=== PATIENT | male | born 1950 | race Caucasian/White ===

== ENCOUNTER 2021-02-25 21:50 | Inpatient (IN) | payer MEDICARE ==
[~2021-02-25] VITALS: Ht 167.6 cm; Wt 48.6 kg
--- NOTE | 2021-02-25 22:01 | NUR ---
bib ems from [facility]. pt brought into [facility] for n/v/d for 6 months but getting worse today with weakness. pt states hard for him to use the restroom at home. given some saline in [place]. pt placed on all monitors, erp evaled pt, pt laughing and joking with this rn at this time, no other needs at this time, safety measures in place
[2021-02-25] MEDS ORDERED: FURO-93 PO (22:12)
[2021-02-25] MEDS ORDERED: ASPI-1026 PO (22:12)
[2021-02-25] MEDS ORDERED: FOLI1TAB32 PO (22:12)
[2021-02-25] MEDS ORDERED: FAMO20TA7 PO (22:12)
[2021-02-25] MEDS ORDERED: CLOP75TA52 PO (22:12)
[2021-02-25] MEDS ORDERED: LISI-170 PO (22:12)
[2021-02-25] MEDS ORDERED: ATOR20TA86 PO (22:12)
[2021-02-25] MEDS ORDERED: BISO5TAB8 PO (22:12)
[2021-02-25] MEDS ORDERED: POTA10CA PO (22:12)
[2021-02-25] MEDS ORDERED: methylPREDNISolone SOD SUCC 125 MG/2 ML ONE (22:16)
[2021-02-25] MEDS ORDERED: SODIUM CHLORIDE FLUSH 10ML SYR IVF ONE (22:30)
[2021-02-25] MEDS ORDERED: methylPREDNISolone SOD SUCC 125 MG/2 ML IV ONE (22:30)
[2021-02-25 22:42] LABS: BASOPHILS % (AUTO) 1 % (0-1); EOSINOPHILS % (AUTO) 2 % (1-7); LYMPHOCYTES % (AUTO) 17 % (22-44); MEAN CORPUSCULAR HEMOGLOBIN 35.4 pg (27.5-34.5); MEAN CORPUSCULAR HGB CONC 33.4 g/dL (33.2-36.2); MEAN PLATELET VOLUME 7.7 fL (7.4-10.4); MONOCYTES % (AUTO) 6 % (2-9); NEUTROPHILS % (AUTO) 75 % (42-75); PLATELET COUNT 216 x10^3/uL (130-400); RED BLOOD COUNT 2.99 x10^6/uL (4.38-5.82); RED CELL DISTRIBUTION WIDTH 14.1 % (9.4-14.8)
[2021-02-25 22:45] LABS: ALANINE AMINOTRANSFERASE 14 U/L (12-78); ALBUMIN 3.1 g/dL (3.4-5.0); ANION GAP 6 mmol/L (5-15); CALCIUM 7.9 mg/dL (8.5-10.1); CHLORIDE 106 mmol/L (98-107)
[2021-02-25 22:56] LABS: ALKALINE PHOSPHATASE 103 U/L (45-117); BILIRUBIN,TOTAL 0.3 mg/dL (0.2-1.0); FREE T4 (FREE THYROXINE) 0.75 ng/dL (0.76-1.46); TOTAL PROTEIN 6.5 g/dL (6.4-8.2); TROPONIN I < 0.015 ng/mL (0.000-0.045)
[2021-02-25] MEDS ORDERED: ALBUTEROL/IPRATROPIUM 2.5MG/0.5MG, 3 ML NPPB ONE (23:00)
[2021-02-25 23:02] LABS: MD SCAN
[2021-02-25] MEDS ORDERED: ALBUTEROL/IPRATROPIUM 2.5MG/0.5MG, 3 ML ONE (23:05)
--- NOTE | 2021-02-25 23:56 | NUR ---
radiology called for xray read. states will call back. pt denies any needs at this time, resting on gurney watching tv
[2021-02-26] MEDS ORDERED: ONDANSETRON 2MG/ML, 2ML IVPush ONE
[2021-02-26] MEDS ORDERED: SODIUM CHLORIDE 0.9% 1,000 ML IV ONE
[2021-02-26] MEDS ORDERED: BISACODYL 10 MG SUPP PR PRN (00:30)
[2021-02-26] MEDS ORDERED: MELATONIN 5 MG TABLET PO PRN (00:30)
[2021-02-26] MEDS ORDERED: FOLIC ACID 1 MG TABLET PO ONE (00:30)
[2021-02-26] MEDS ORDERED: LORazepam 2 MG/ML, 1ML IV PRN ×5 (00:30)
[2021-02-26] MEDS ORDERED: SODIUM CHLORIDE 0.9% 1,000 ML IV SCH (00:30)
[2021-02-26] MEDS ORDERED: LIDODERM 5% PATCH TD PRN (00:30)
[2021-02-26] MEDS: NICOTINE 14MG/24 HR PATCH.TD24 TD SCH (00:30)
--- NOTE | 2021-02-26 00:36 | NUR ---
REPORT GIVEN TO ALESSANDRA ZULUAGA
[2021-02-26] MEDS ORDERED: PHARMACY MAY ADJ FOR RENAL FX MC PRN (01:00)
[2021-02-26 01:12] VITALS: BP 128/79
[2021-02-26 02:35] LABS: BASOPHILS % (AUTO) 0 % (0-1); EOSINOPHILS % (AUTO) 0 % (1-7); LYMPHOCYTES % (AUTO) 7 % (22-44); MEAN PLATELET VOLUME 7.9 fL (7.4-10.4); MONOCYTES % (AUTO) 1 % (2-9); NEUTROPHILS % (AUTO) 91 % (42-75); PLATELET COUNT 197 x10^3/uL (130-400); RED BLOOD COUNT 2.85 x10^6/uL (4.38-5.82); RED CELL DISTRIBUTION WIDTH 14.1 % (9.4-14.8)
[2021-02-26 02:42] LABS: ANION GAP 11 mmol/L (5-15); CALCIUM 7.8 mg/dL (8.5-10.1); CHLORIDE 103 mmol/L (98-107); CREATININE 3.18 mg/dL (0.7-1.3)
[2021-02-26 02:43] LABS: MD NO
[2021-02-26] MEDS: HEPARIN 5,000 UNITS/ML, 1ML SQ SCH ×3 (02:45→16:39)
[2021-02-26] MEDS ORDERED: ALBUTEROL/IPRATROPIUM 2.5MG/0.5MG, 3 ML NPPB PRN (03:00)
[2021-02-26 08:07] VITALS: BP 111/66
[2021-02-26] MEDS ORDERED: ERGOCALCIFEROL 50,000 UNIT CAPSULE PO SCH (08:30)
[2021-02-26] MEDS: FAMOTIDINE 20 MG TABLET PO SCH (08:52)
[2021-02-26] MEDS: ATORVASTATIN 20 MG TABLET PO SCH (08:52)
[2021-02-26] MEDS: POTASSIUM CHLORIDE 10 MEQ TABLET.ER PO SCH (08:52)
[2021-02-26] MEDS: CLOPIDOGREL 75 MG TABLET PO SCH (08:52)
[2021-02-26] MEDS: ATENOLOL 50 MG TABLET PO SCH (08:52)
[2021-02-26] MEDS: ASPIRIN 325 MG TABLET EC PO SCH (08:52)
[2021-02-26] MEDS: FOLIC ACID 1 MG TABLET PO SCH (08:53)
[2021-02-26] MEDS ORDERED: LISINOPRIL 20 MG TABLET PO SCH (09:00)
[2021-02-26 12:58] VITALS: BP 109/66
[2021-02-26 18:59] VITALS: BP 115/76
[2021-02-26] MEDS: SODIUM CHLORIDE 0.9% 1,000 ML IV SCH (21:41)
[2021-02-26 21:50] LABS: CLOSTRIDIUM DIFFICILE ANTIGEN NEGATIVE; CLOSTRIDIUM DIFFICILE TOXIN NEGATIVE (Negative)
[2021-02-26] MEDS: ACETAMINOPHEN 325 MG TABLET PO PRN (22:48)
[2021-02-27] MEDS: NICOTINE 14MG/24 HR PATCH.TD24 TD SCH (00:30)
[2021-02-27 00:33] VITALS: BP 105/65
[2021-02-27] MEDS: HEPARIN 5,000 UNITS/ML, 1ML SQ SCH ×3 (00:38→15:09)
[2021-02-27 07:32] VITALS: BP 100/57
[2021-02-27] MEDS: ASPIRIN 325 MG TABLET EC PO SCH (09:14)
[2021-02-27] MEDS: CLOPIDOGREL 75 MG TABLET PO SCH (09:14)
[2021-02-27] MEDS: THIAMINE 100 MG in DEXTROSE 5% 50 ML IVPB SCH (09:14)
[2021-02-27] MEDS: FOLIC ACID 1 MG TABLET PO SCH (09:14)
[2021-02-27] MEDS: ATORVASTATIN 20 MG TABLET PO SCH (09:14)
[2021-02-27] MEDS: SODIUM CHLORIDE 0.9% 1,000 ML IV SCH ×2 (09:14→22:40)
[2021-02-27] MEDS: FAMOTIDINE 20 MG TABLET PO SCH (09:15)
[2021-02-27] MEDS: ATENOLOL 50 MG TABLET PO SCH (09:15)
[2021-02-27] MEDS: POTASSIUM CHLORIDE 10 MEQ TABLET.ER PO SCH (09:15)
[2021-02-27 09:22] LABS: BASOPHILS % (AUTO) 0 % (0-1); EOSINOPHILS % (AUTO) 0 % (1-7); LYMPHOCYTES % (AUTO) 12 % (22-44); MEAN CORPUSCULAR HEMOGLOBIN 36.1 pg (27.5-34.5); MEAN CORPUSCULAR HGB CONC 33.9 g/dL (33.2-36.2); MEAN PLATELET VOLUME 7.7 fL (7.4-10.4); MONOCYTES % (AUTO) 5 % (2-9); NEUTROPHILS % (AUTO) 83 % (42-75); PLATELET COUNT 192 x10^3/uL (130-400); RED BLOOD COUNT 2.31 x10^6/uL (4.38-5.82)
[2021-02-27 09:36] LABS: ALBUMIN 2.7 g/dL (3.4-5.0); ANION GAP 2 mmol/L (5-15); CALCIUM 7.6 mg/dL (8.5-10.1); CHLORIDE 109 mmol/L (98-107)
[2021-02-27 09:39] LABS: ALANINE AMINOTRANSFERASE 11 U/L (12-78); ALKALINE PHOSPHATASE 73 U/L (45-117); BILIRUBIN,TOTAL 0.3 mg/dL (0.2-1.0); CREATININE 2.34 mg/dL (0.7-1.3); TOTAL PROTEIN 5.3 g/dL (6.4-8.2)
[2021-02-27 09:41] LABS: MD NO
[2021-02-27 13:05] VITALS: BP 102/53
[2021-02-27] MEDS ORDERED: MAGNESIUM SULFATE PMX 4GM/100M 100 ML IVPB ONE (14:30)
[2021-02-27 20:44] VITALS: BP 147/78
[2021-02-28] MEDS: NICOTINE 14MG/24 HR PATCH.TD24 TD SCH (00:30)
[2021-02-28 00:38] VITALS: BP 135/84
[2021-02-28] MEDS: HEPARIN 5,000 UNITS/ML, 1ML SQ SCH ×3 (01:11→15:51)
[2021-02-28 04:50] LABS: BASOPHILS % (AUTO) 0 % (0-1); EOSINOPHILS % (AUTO) 1 % (1-7); LYMPHOCYTES % (AUTO) 15 % (22-44); MEAN CORPUSCULAR HEMOGLOBIN 36.1 pg (27.5-34.5); MEAN CORPUSCULAR HGB CONC 33.2 g/dL (33.2-36.2); MEAN PLATELET VOLUME 7.7 fL (7.4-10.4); MONOCYTES % (AUTO) 5 % (2-9); NEUTROPHILS % (AUTO) 79 % (42-75); PLATELET COUNT 204 x10^3/uL (130-400); RED BLOOD COUNT 2.54 x10^6/uL (4.38-5.82); RED CELL DISTRIBUTION WIDTH 13.9 % (9.4-14.8)
[2021-02-28 04:51] LABS: MD NO
[2021-02-28 05:03] LABS: ANION GAP 4 mmol/L (5-15); CALCIUM 7.5 mg/dL (8.5-10.1); CHLORIDE 109 mmol/L (98-107); CREATININE 1.69 mg/dL (0.7-1.3)
[2021-02-28 07:36] VITALS: BP 134/81
[2021-02-28] MEDS ORDERED: REGADENOSON 0.4 MG/5 ML SYRINGE ONE (08:23)
[2021-02-28 08:34] LABS: TROPONIN I < 0.015 ng/mL (0.000-0.045)
[2021-02-28] MEDS: FAMOTIDINE 20 MG TABLET PO SCH (08:39)
[2021-02-28] MEDS: CLOPIDOGREL 75 MG TABLET PO SCH (08:39)
[2021-02-28] MEDS: SODIUM CHLORIDE 0.9% 1,000 ML IV SCH ×2 (09:00→17:00)
[2021-02-28] MEDS: THIAMINE 100 MG in DEXTROSE 5% 50 ML IVPB SCH (11:15)
[2021-02-28] MEDS: ATENOLOL 50 MG TABLET PO SCH (11:16)
[2021-02-28] MEDS: ASPIRIN 325 MG TABLET EC PO SCH (11:16)
[2021-02-28] MEDS: FOLIC ACID 1 MG TABLET PO SCH (11:17)
[2021-02-28] MEDS: POTASSIUM CHLORIDE 10 MEQ TABLET.ER PO SCH (11:17)
[2021-02-28 13:41] VITALS: BP 159/90
[2021-02-28 19:06] VITALS: BP 137/85
[2021-02-28] MEDS: ATORVASTATIN 20 MG TABLET PO SCH (21:58)
[2021-03-01] MEDS: NICOTINE 14MG/24 HR PATCH.TD24 TD SCH ×2 (00:30→20:12)
[2021-03-01 00:45] VITALS: BP 103/57
[2021-03-01] MEDS: HEPARIN 5,000 UNITS/ML, 1ML SQ SCH ×3 (01:31→15:41)
[2021-03-01] MEDS: SODIUM CHLORIDE 0.9% 1,000 ML IV SCH (04:30)
[2021-03-01 04:44] LABS: BASOPHILS % (AUTO) 0 % (0-1); EOSINOPHILS % (AUTO) 2 % (1-7); LYMPHOCYTES % (AUTO) 16 % (22-44); MEAN CORPUSCULAR HEMOGLOBIN 35.9 pg (27.5-34.5); MEAN CORPUSCULAR HGB CONC 33.3 g/dL (33.2-36.2); MEAN PLATELET VOLUME 7.7 fL (7.4-10.4); MONOCYTES % (AUTO) 9 % (2-9); NEUTROPHILS % (AUTO) 74 % (42-75); PLATELET COUNT 173 x10^3/uL (130-400)
[2021-03-01 04:48] LABS: MD NO
[2021-03-01 04:57] LABS: CHLORIDE 110 mmol/L (98-107)
[2021-03-01 05:01] LABS: CALCIUM 7.6 mg/dL (8.5-10.1); CREATININE 1.31 mg/dL (0.7-1.3)
[2021-03-01 05:13] LABS: ANION GAP 2 mmol/L (5-15)
[2021-03-01 08:09] VITALS: BP 154/85
[2021-03-01] MEDS ORDERED: ALBUTEROL/IPRATROPIUM 2.5MG/0.5MG, 3 ML NPPB PRN (08:30)
[2021-03-01] MEDS: POTASSIUM CHLORIDE 10 MEQ TABLET.ER PO SCH (08:57)
[2021-03-01] MEDS: ASPIRIN 325 MG TABLET EC PO SCH (08:57)
[2021-03-01] MEDS: ACETAMINOPHEN 325 MG TABLET PO PRN (08:57)
[2021-03-01] MEDS: CLOPIDOGREL 75 MG TABLET PO SCH (08:57)
[2021-03-01] MEDS: methylPREDNISolone SOD SUCC 125 MG/2 ML IV SCH ×3 (08:57→20:29)
[2021-03-01] MEDS: FOLIC ACID 1 MG TABLET PO SCH (08:57)
[2021-03-01] MEDS: GUAIFENESIN ER 600 MG TABLET PO SCH ×2 (08:57→20:29)
[2021-03-01] MEDS: FAMOTIDINE 20 MG TABLET PO SCH (08:58)
[2021-03-01] MEDS: ATORVASTATIN 20 MG TABLET PO SCH (08:58)
[2021-03-01] MEDS: ATENOLOL 50 MG TABLET PO SCH (08:58)
[2021-03-01] MEDS: FLUTICASONE/VILANTEROL 200-25MCG/INH INH SCH (09:00)
[2021-03-01] MEDS: THIAMINE 100 MG in DEXTROSE 5% 50 ML IVPB SCH (12:01)
[2021-03-01] MEDS: THIAMINE 100MG TABLET PO SCH (13:09)
[2021-03-01 13:19] VITALS: BP 155/84
[2021-03-01 20:39] VITALS: BP 138/76
[2021-03-02 01:33] VITALS: BP 144/95
[2021-03-02] MEDS: HEPARIN 5,000 UNITS/ML, 1ML SQ SCH ×3 (01:37→16:31)
[2021-03-02 07:35] VITALS: BP 129/48
[2021-03-02 08:50] VITALS: BP 136/81
[2021-03-02] MEDS: methylPREDNISolone SOD SUCC 125 MG/2 ML IV SCH ×2 (08:51→16:04)
[2021-03-02] MEDS: ATORVASTATIN 20 MG TABLET PO SCH (08:52)
[2021-03-02] MEDS: ASPIRIN 325 MG TABLET EC PO SCH (08:52)
[2021-03-02] MEDS: THIAMINE 100MG TABLET PO SCH (08:52)
[2021-03-02] MEDS: POTASSIUM CHLORIDE 10 MEQ TABLET.ER PO SCH (08:52)
[2021-03-02] MEDS: CLOPIDOGREL 75 MG TABLET PO SCH (08:52)
[2021-03-02] MEDS: ATENOLOL 50 MG TABLET PO SCH (08:52)
[2021-03-02] MEDS: FAMOTIDINE 20 MG TABLET PO SCH (08:52)
[2021-03-02] MEDS: GUAIFENESIN ER 600 MG TABLET PO SCH (08:52)
[2021-03-02] MEDS: FOLIC ACID 1 MG TABLET PO SCH (08:52)
[2021-03-02] MEDS: FLUTICASONE/VILANTEROL 200-25MCG/INH INH SCH (09:01)
[2021-03-02 12:49] VITALS: BP 139/76
[2021-03-02] MEDS ORDERED: ERGO500017 PO (14:02)
[2021-03-02] MEDS ORDERED: GUAI600T31 PO (14:02)
[2021-03-02] MEDS ORDERED: FLUT1BLS INH (14:02)
[2021-03-02] MEDS ORDERED: METH4TAB2 PO (14:02)
[2021-03-02] MEDS ORDERED: THIA100T67 PO (14:02)
[2021-03-02] MEDS ORDERED: AMLO-150 PO (14:04)
== END 2021-03-02 18:08 | disposition home health service (06) | DRG 682 ==
LOC: ED 23:22 → EDIP 02-26 → 5SO 02-26 01:00 → DCLOUNGE 03-02 15:05 → 5SO 03-02 15:19
PROVIDERS: ADMIT Family Medicine; ATTEND Internal Medicine
DX: N17.0 Acute kidney failure with tubular necrosis (principal); E43 Unspecified severe protein-calorie malnutrition; Z68.1 Body mass index [BMI] 19.9 or less, adult; J44.1 Chronic obstructive pulmonary disease with (acute) exacerbation; M48.54XA Collapsed vertebra, not elsewhere classified, thoracic region, initial encounter for fracture; F10.139 Alcohol abuse with withdrawal, unspecified; E55.9 Vitamin D deficiency, unspecified; E86.0 Dehydration; F17.210 Nicotine dependence, cigarettes, uncomplicated; G89.29 Other chronic pain; I11.0 Hypertensive heart disease with heart failure; I25.10 Atherosclerotic heart disease of native coronary artery without angina pectoris; I50.9 Heart failure, unspecified; K21.9 Gastro-esophageal reflux disease without esophagitis; R13.10 Dysphagia, unspecified; Z88.5 Allergy status to narcotic agent; Z88.8 Allergy status to other drugs, medicaments and biological substances; Z71.6 Tobacco abuse counseling; I25.2 Old myocardial infarction; Z95.5 Presence of coronary angioplasty implant and graft
CPT/HCPCS: 36415; 71045; 71250; 74150; 76770; 78452; 80048; 80053; 82306; 83605; 83735; 83880; 83970; 84100; 84439; 84443; 84484; 85025; 87040; 87324; 93005; 93017; 93306; 94640; 96374; G0378; J1644; J2785; J3411; A9502; J2930; J3475; J7030